=== PATIENT | male | born 1995 | race Two or more races ===

== ENCOUNTER 2018-09-16 18:34 | Emergency (ER) | payer OTHER ==
[~2018-09-16] VITALS: Ht 175.3 cm; Wt 115.0 kg
[2018-09-16] MEDS ORDERED: ONDANSETRON HCL 4MG/2ML INJ IV STA (19:00)
[2018-09-16] MEDS ORDERED: MORPHINE SULFATE 4 MG/ML CPJ (NOT FOR IM USE) IV STA (19:00)
[2018-09-16] MEDS ORDERED: SODIUM CHLORIDE 0.9% 1,000 ML IV ONE (19:00)
[2018-09-16 19:30] LABS: BASOPHILS % 0.6 % (0.0-2.0); EOSINOPHILS % 1.3 % (0.0-5.0); HEMOGLOBIN. 14.5 g/dL (14.0-18.0); LYMPHOCYTES % 26.3 % (20.0-50.0); MEAN CORPUSCULAR HEMOGLOBIN 30.6 pg (28.0-32.0); MEAN CORPUSCULAR VOLUME 88.6 fL (80.0-94.0); MEAN PLATELET VOLUME 7.9 fl (7.4-10.4); MONOCYTES % 7.8 % (2.0-8.0); PLATELET 291 x1000/uL (130-400); RED BLOOD CELL COUNT 4.74 mill/uL (4.7-6.1); RED CELL DISTRIBUTION WIDTH 12.8 % (11.6-14.6)
[2018-09-16 19:33] LABS: CHLORIDE 103 mEq/L (98-107)
[2018-09-16 19:35] LABS: INR 1.1; PARTIAL THROMBOPLASTIN TIME 30.6 sec (23.4-31.0); PROTHROMBIN TIME 11.3 sec (9.6-11.0)
[2018-09-16] MEDS ORDERED: IOHEXOL-300 100 ML BOTTLE ONE (20:27)
[2018-09-16] MEDS ORDERED: KETOROLAC 30MG/ML VIAL IV ONE (21:15)
[2018-09-16 21:42] LABS: CLARITY URINE CLEAR (CLEAR); COLOR URINE YELLOW (YELLOW); KETONES URINE TRACE (NEGATIVE); LEUKOCYTE ESTERASE URINE NEGATIVE (NEGATIVE); NITRITE URINE NEGATIVE (NEGATIVE); OCCULT BLOOD URINE NEGATIVE (NEGATIVE); PROTEIN URINE NEGATIVE (NEGATIVE); SPECIFIC GRAVITY URINE 1.048 (1.005-1.030)
[2018-09-16 22:17] VITALS: BP 137/68
== END 2018-09-16 22:35 | disposition home or self-care (01) ==
LOC: ER 18:34
DX: S09.8XXA Other specified injuries of head, initial encounter (principal); S20.211A Contusion of right front wall of thorax, initial encounter; M54.9 Dorsalgia, unspecified; W11.XXXA Fall on and from ladder, initial encounter; Y93.89 Activity, other specified; Y92.89 Other specified places as the place of occurrence of the external cause; Y99.8 Other external cause status
CPT/HCPCS: 36415; 70450; 71045; 71260; 72125; 74177; 80053; 81003; 83880; 84484; 85025; 85610; 85730; 86850; 86900; 86901; 93005; 96374; 99284; J1885; J2270; J7030; Q9967; J2405